=== PATIENT | female | born 1950 | race Caucasian/White ===

== ENCOUNTER → 2016-06-09 | Outpatient (CLI) | payer MEDICARE, OTHER | LOC: CT 08:00 | DX: R51 Headache (principal); J47.9 Bronchiectasis, uncomplicated; J98.4 Other disorders of lung; J32.9 Chronic sinusitis, unspecified; R91.8 Other nonspecific abnormal finding of lung field; Z85.42 Personal history of malignant neoplasm of other parts of uterus; Z85.048 Personal history of other malignant neoplasm of rectum, rectosigmoid junction, and anus; Z90.710 Acquired absence of both cervix and uterus | CPT/HCPCS: 70450; 71250; J0583; J1644; J7050; Q9962; Q9965 ==

== ENCOUNTER → 2016-07-29 | Outpatient (CLI) | payer MEDICARE, OTHER | LOC: MAMO 11:40 | DX: Z12.31 Encounter for screening mammogram for malignant neoplasm of breast (principal); Z78.0 Asymptomatic menopausal state | CPT/HCPCS: G0202 ==

== ENCOUNTER 2016-08-17 17:00 | Emergency (ER) | payer MEDICARE, OTHER | END 2016-08-18 02:35 | disposition home or self-care (01) | LOC: ER1 17:00 | DX: T17.228A Food in pharynx causing other injury, initial encounter (principal); Z88.6 Allergy status to analgesic agent | CPT/HCPCS: 70360; 70490; 71020; 99284 ==

== ENCOUNTER → 2020-06-01 | Outpatient (CLI) | payer MEDICARE | LOC: CT 07:49 | DX: R10.9 Unspecified abdominal pain (principal); Z85.42 Personal history of malignant neoplasm of other parts of uterus; K76.9 Liver disease, unspecified | CPT/HCPCS: 36415; 82565; Q9967 ==

== ENCOUNTER → 2020-09-24 | Outpatient (CLI) | payer MEDICARE | LOC: CT 08:06 | DX: K76.89 Other specified diseases of liver (principal) | CPT/HCPCS: 36415; 74160; 82565; 84520; Q9967 ==